=== PATIENT | male | born 1950 | race Caucasian/White ===

== ENCOUNTER 2016-10-04 10:38 | Inpatient (IN) | payer BC ==
[~2016-10-04] VITALS: Ht 177.8 cm; Wt 62.0 kg
--- NOTE | 2016-10-04 12:04 | ERA ---
ER Documentation Chief Complaint Date/Time DATE: 10/04/16 TIME: 12:04 Chief Complaint dizzy HPI The patient is a 76-year-old male, presenting to the ER because of dizziness about 10 AM while he was washing his car, complains of dry mouth. He denies similar symptoms previously, denies syncope, near syncope, vertigo, neck pain, chest pain, dyspnea, abdominal pain, vomiting, dysuria, diarrhea. He does not smoke, drink, he did take Viagra last week Past medical/surgical history: None ROS All systems reviewed and are negative except as per history of present illness. Medications Home Meds Reported Medications Sildenafil Citrate* (Viagra*) 25 Mg Tablet, 25 MG PO DAILY Y for SEXUAL ACTIVITIES, TAB 10/04/16 Allergies Allergies: Coded Allergies: No Known Allergy (Unverified , 10/04/16) Physical Exam Vitals Vital Signs Date Time Temp Pulse Resp B/P Pulse Ox O2 Delivery O2 Flow Rate FiO2 10/04/16 13:25 49 17 149/76 100 Room Air Physical Exam Const: No acute distress. Head: Atraumatic. Eyes: Normal Conjunctiva. ENT: Normal External Ears, Nose and Mouth. Neck: Full range of motion. No meningismus. Resp: Clear to auscultation bilaterally. Cardio: Regular bradycardic Abd: Soft, non distended, normal bowel sounds, non tender. Skin: No petechiae or rashes. Back: No midline or flank tenderness. Ext: No cyanosis, or edema. Neur: Awake and alert. No focal deficit Psych: Normal Mood and Affect. Result Diagram: 10/04/16 1205 10/04/16 1553 Results 24 hrs Laboratory Tests Test 10/04/16 12:05 White Blood Count 8.310^3/ul Red Blood Count 4.9810^6/ul Hemoglobin 15.4g/dl Hematocrit 45.8% Mean Corpuscular Volume 92.0fl Mean Corpuscular Hemoglobin 30.9pg Mean Corpuscular Hemoglobin Concent 33.6g/dl Red Cell Distribution Width 14.0% Platelet Count 05668^3/UL Mean Platelet Volume 9.5fl Neutrophils % 77.6% Lymphocytes % 11.7% Monocytes % 8.1% Eosinophils % 1.6% Basophils % 0.6% Nucleated Red Blood Cells % 0.0/100WBC Neutrophils # (Manual) 610^3/ul Lymphocytes # 1.010^3/ul Monocytes # 0.710^3/ul Eosinophils # 0.110^3/ul Basophils # 0.110^3/ul Nucleated Red Blood Cells # 0.010^3/ul Sodium Level 156mmol/L Potassium Level 4.5mmol/L Chloride Level 99mmol/L Carbon Dioxide Level 30mmol/L Anion Gap 32 Blood Urea Nitrogen 14mg/dl Creatinine 0.91mg/dl Glucose Level 112mg/dl Calcium Level 9.6mg/dl Troponin I < 0.012ng/ml Thyroid Stimulating Hormone (TSH) 0.814MIU/L Procedures/MDM EKG: Read by emergency physician Rate/Rhythm: Sinus bradycardia 42 beats/min QRS, ST, T-waves: No ST elevation, no T inversion, incomplete right bundle branch block Impression: Abnormal EKG [place] [address] Radiology Main Line: [phone] DIAGNOSTIC IMAGING REPORT Patient: ALYSSA DASH : 1950 Age: 66 Sex: M [id number] DOS: 10/04/16 1151 Ordering MD: CARLIN CARRASCO MD Location: E/R Room/Bed: PROCEDURE: CT Brain without contrast. CLINICAL INDICATION: Dizziness, syncope. TECHNIQUE: A CT of the brain was performed on a multidetector CT scanner utilizing axial sections from the skull base through the vertex without contrast. Images were reviewed on a high-resolution PACS workstation. Exam CTDI = 44.58 mGy and the DLP = 720.23 mGy-cm. One or the following dose reduction techniques were used: -Automated exposure control. -Adjustment of the mA and/or KV according to patient's size. -Use of iterative reconstruction technique COMPARISON: None available FINDINGS: Mild diffuse cerebral and cerebellar atrophy is present. There is proportionate dilatation of the ventricular system and sulci in a symmetric fashion. There is prominence of the extraaxial spaces secondary to atrophy. There is no evidence of intracranial hemorrhage, mass effect or midline shift. No abnormal intra-axial or extra-axial fluid collections are seen. The density of the brain is normal and the loaiza/white matter differentiation is well preserved. Mild patchy diffuse deep white matter microangiopathic ischemic change is seen. The osseous structures and visualized paranasal sinuses are unremarkable. IMPRESSION: 1. No evidence of acute intracranial pathology. 2. Age-related volume loss and small vessel ischemic changes. RPTAT: AACC Justin Sullivan Physician Date Time Electronically viewed and signed by Justin Sullivan Physician on 10/04/2016 12: 58 JH/ CC: CARLIN CARRASCO MD MEDICAL MAKING DECISION: The patient is a 76-year-old male, presenting with acute dizziness of unclear etiology, acute bradycardia, acute hypernatremia. He remained stable emergency department The differential diagnoses considered include but are not limited to central causes such as cerebellar infarct, cerebellar hemorrhage, cerebellar tumor, acoustic neuroma, peripheral causes such as benign positional vertigo, labyrinthitis, medication, Meniere's disease. Departure Diagnosis: Primary Impression: Dizziness Additional Impressions: Bradycardia Hypernatremia Condition: Stable Comments I discussed the findings with the patient. I discussed the patient with the on- call hospitalist Dr. Sheppard at 1:30 pm who was made aware of the lab, the treatment, the patient condition. The patient is admitted to telemetry The patient's blood pressure was elevated (>120/80) but appears stable without evidence of hypertension emergency or urgency. The patient was counseled about the risks of hypertension and urged to pursue outpatient monitoring and therapy within a week with their primary care physician. CARLIN CARRASCO MD Oct 04, 2016 12:02
[2016-10-04 12:37] LABS: BASOPHIL # 0.1 10^3/ul (0.0-0.1); BASOPHILS % 0.6 % (0.0-2.0); EOSINOPHILS # 0.1 10^3/ul (0.0-0.5); EOSINOPHILS % 1.6 % (0.0-7.0); HEMATOCRIT 45.8 % (42.0-52.0); HEMOGLOBIN 15.4 g/dl (14.0-18.0); LYMPHOCYTES % 11.7 % (15.0-51.0); MEAN CORPUSCULAR HEMOGLOBIN 30.9 pg (29.0-33.0); MEAN CORPUSCULAR HGB CONC 33.6 g/dl (32.0-37.0); MEAN PLATELET VOLUME 9.5 fl (7.4-10.4); MONOCYTE # 0.7 10^3/ul (0.3-0.9); MONOCYTES % 8.1 % (0.0-11.0); NEUTROPHILS % 77.6 % (39.0-77.0); PLATELET COUNT 223 10^3/UL (140-415); RED BLOOD COUNT 4.98 10^6/ul (4.70-6.10); WHITE BLOOD COUNT 8.3 10^3/ul (4.8-10.8)
[2016-10-04 12:58] LABS: ANION GAP 32 (8-16); BLOOD UREA NITROGEN 14 mg/dl (7-20); CALCIUM 9.6 mg/dl (8.4-10.2); CARBON DIOXIDE 30 mmol/L (21-31); CHLORIDE 99 mmol/L (97-110); CREATININE 0.91 mg/dl (0.61-1.24); GLUCOSE 112 mg/dl (70-220); POTASSIUM 4.5 mmol/L (3.5-5.1); SODIUM 156 mmol/L (135-144)
--- NOTE | 2016-10-04 12:59 | RADRPT ---
PROCEDURE: CT Brain without contrast. CLINICAL INDICATION: Dizziness, syncope. TECHNIQUE: A CT of the brain was performed on a multidetector CT scanner utilizing axial sections from the skull base through the vertex without contrast. Images were reviewed on a high-resolution [employer] workstation. Exam CTDI = 44.58 mGy and the DLP = 720.23 mGy-cm. One or the following dose reduction techniques were used: -Automated exposure control. -Adjustment of the mA and/or KV according to patient's size. -Use of iterative reconstruction technique COMPARISON: None available FINDINGS: Mild diffuse cerebral and cerebellar atrophy is present. There is proportionate dilatation of the v entricular system and sulci in a symmetric fashion. There is prominence of the extraaxial spaces sec ondary to atrophy. There is no evidence of intracranial hemorrhage, mass effect or midline shift. N o abnormal intra-axial or extra-axial fluid collections are seen. The density of the brain is peter l and the loaiza/white matter differentiation is well preserved. Mild patchy diffuse deep white matte r microangiopathic ischemic change is seen. The osseous structures and visualized paranasal sinuses are unremarkable. IMPRESSION: 1. No evidence of acute intracranial pathology. 2. Age-related volume loss and small vessel ischemic changes. RPTAT: AACC Physician Cyril Date Time Electronically viewed and signed by Physician Cyril on 10/04/2016 12:58 /
[2016-10-04 13:07] LABS: TROPONIN-I < 0.012 ng/ml (0.00-0.12)
[2016-10-04] MEDS ORDERED: SILD25TA5 PO (13:48)
[2016-10-04] MEDS ORDERED: DEXTROSE 5%-0.45% NACL 1,000 ML IV SCH (14:50)
[2016-10-04 14:54] VITALS: Ht 177.8 cm; Wt 62.0 kg
[2016-10-04] MEDS ORDERED: ACETAMINOPHEN 325 MG TAB PO PRN (15:00)
[2016-10-04] MEDS ORDERED: HYDROCODONE/APAP (5/325) TAB PO PRN (15:00)
[2016-10-04] MEDS ORDERED: morphine 2 MG INJ IV PRN (15:00)
[2016-10-04] MEDS ORDERED: NITROGLYCERIN (SL) 0.4 MG TAB SL PRN (15:00)
[2016-10-04] MEDS ORDERED: DEXTROSE 5% 1,000 ML IV SCH (15:00)
[2016-10-04] MEDS ORDERED: DOCUSATE SODIUM 100 MG CAP PO PRN (15:00)
[2016-10-04] MEDS ORDERED: ACETAMINOPHEN 650 MG SUPP PR PRN (15:00)
[2016-10-04] MEDS ORDERED: NACL 0.9% 3 ML SYG IV SCH (15:00)
[2016-10-04] MEDS ORDERED: ONDANSETRON 4 MG INJ IV PRN (15:00)
[2016-10-04 15:10] VITALS: BP 177/84; PULSE 43; RESP 18
--- NOTE | 2016-10-04 15:16 | HP ---
Date/Time of Note Date/Time of Note DATE: 10/04/16 TIME: 15:10 Assessment/Plan VTE Prophylaxis VTE Prophylaxis Intervention: SCD's Assessment/Plan Assessment/Plan This is a 66-year-old male who came to the emergency room for evaluation of sudden new onset of dizziness and lightheadedness. 1. Dizziness/lightheadedness-most likely dehydration with electrolyte imbalances versus vasovagal versus orthostatic hypotension versus others. CT negative for any acute ischemic process. -Admit to telemetry. Rule out ACS with serial troponin, serial EKG and 2D echocardiogram and possible cardiology consult. -Patient will be started on aspirin. -Obtain orthostatic vital signs. 2. Severe Hypernatremia with Free water deficit approximately 3 L -We will repeat sodium level to confirm accuracy. Obtain osmolality studies. Consider nephrology evaluation. -Start patient on D5 water. 3. Sinus bradycardia -Consider cardiology evaluation as patient presented with #1. -Refrain from any beta blockers or AV dony blocking agents. Plan: Patient will be admitted to telemetry. He will be started on a diet. Will monitor serial troponins and serial EKGs. Will continue to monitor electrolyte level closely. Patient will have nephrology evaluation. Will also obtain fasting lipid panel, A1c and TSH level. Rest of the management depend on clinical course, further studies and input from consultants. Approximately 60 minutes was spent on this history and physical. Case discussed with Dr. Sheppard. HPI/ROBERTA Admit Date/Time Admit Date/Time Oct 04, 2016 at 14:39 Hx of Present Illness This is a 66-year-old male with no significant past medical history, who presented to the emergency room with complaints of new onset of dizziness and lightheadedness which started this morning while he was washing his car. Patient also complained of feeling thirsty with dry mouth and diaphoresis. He denied any polyuria. Patient denied any loss of consciousness, numbness, tingling, difficulty breathing, nausea, chest pain, palpitation, vomiting, abdominal pain or any bowel or bladder irregularities. He also takes Viagra at home. Initial workup showed elevated sodium 156. 12 EKG sinus bradycardia at 42 bpm. Chest x-ray negative for any acute brain CT negative for acute ischemic events. Initial troponin negative. Patient was admitted for further evaluation. ROS A 12 point review system was assessed and is negative other than what is mentioned in the HPI. PMH/Family/Social Past Medical History See HPI Past Surgical History See HPI Social History No history of alcohol, smoking or illicit drug use. Smoking Status: Never smoker Exam/Review of Systems Vital Signs Vitals Vital Signs Date Time Temp Pulse Resp B/P Pulse Ox O2 Delivery O2 Flow Rate FiO2 10/04/16 13:25 49 17 149/76 100 Room Air Exam Exam General: Well developed,adequately built, not in any acute distress . HEENT: Normocephalic, Atraumatic, No laceration or hematoma; Eyes: PEERL, Conjunctiva clear, Anicteric sclera Neck: Supple without any lymphadenopathy, nontender, no JVD, no carotid bruits, trachea midline, no thyromegaly Cardiac: S1, S2 auscultated, regular rhythm and rate, no mumurs or gallop Pulmonary: Normal respiratory effort. Chest clear to auscultation bilaterally, no adventitious breath sounds GI: Abdomen normal to inspection. Soft, non tender, non- distended, no masses, no rebound tenderness or guarding. Bowel sounds active on all four quadrants Genitourinary: Deferred Extremities: No cyanosis, clubbing, or edema. Pulses [2+] bilaterally. Full ROM on all four extremities. No focal weakness appreciated. Neurologic: Alert to person, place, time, and situation. Affect appropriate, intact sensation. Skin: Clean,dry, and intact. No ecchymosis, no rashes, or lesions Labs Result Diagram: 10/04/16 1205 10/04/16 1205 Medications Medications Current Medications Ondansetron HCl (Zofran Inj) 4 mg Q6H PRN IV NAUSEA AND/OR VOMITING; Start at 15:00 Acetaminophen (Tylenol Tab) 650 mg Q6H PRN PO PAIN LEVEL 1-3 OR FEVER; Start at 15:00 Acetaminophen (Tylenol Supp) 650 mg Q6H PRN [place] PAIN LEVEL 1-3 OR FEVER; Start 10/04/16 at 15:00 Acetaminophen/ Hydrocodone Bitart ([place] (5/325)) 1 tab Q6H PRN PO MODERATE PAIN LEVEL 4-6; Start 10/04/16 at 15:00 Morphine Sulfate (morphine) 2 mg Q4H PRN IV SEVERE PAIN LEVEL 7-10; Start 10/04 at 15:00 Docusate Sodium (Colace) 100 mg Q12H PRN PO CONSTIPATION; Start 10/04/16 at 15: 00 Aspirin (Aspirin) 81 mg DAILY PO ; Start 10/05/16 at 09:00 Nitroglycerin 1 tab 1 tab Q5M PRN SL ANGINA; Start 10/04/16 at 15:00 Dextrose (D5W) 1,000 ml @ 100 mls/hr Q10H IV ; Start 10/04/16 at 15:00 MADELINE CHUA NP Oct 04, 2016 15:16
[2016-10-04 16:00] VITALS: PULSE 45
[2016-10-04 17:24] LABS: CREATINE KINASE 129 IU/L (23-200)
[2016-10-04 17:47] LABS: CK-MB 2.57 ng/ml (0.0-2.4); TROPONIN-I < 0.012 ng/ml (0.00-0.12)
--- NOTE | 2016-10-04 18:55 | QN ---
Documentation Comment pt seen and examined, h/p dictated LETICIA RUVALCABA DO Oct 04, 2016 18:55
[2016-10-04 19:50] VITALS: BP 150/84; PULSE 56; RESP 18
[2016-10-04 22:10] VITALS: BP_SYST 136; BP_SYST 139; BP_SYST 141; BP_DIAS 73; BP_DIAS 75; BP_DIAS 79; PULSE 47; RESP 20
[2016-10-04 22:16] VITALS: PULSE 55
[2016-10-04 22:39] LABS: CREATINE KINASE 122 IU/L (23-200)
[2016-10-04 22:53] LABS: CK-MB 1.95 ng/ml (0.0-2.4); TROPONIN-I < 0.012 ng/ml (0.00-0.12)
[2016-10-04 23:41] VITALS: BP 130/77; RESP 17
[2016-10-05] VITALS (7 sets, daily range): BP systolic 130–139; BP diastolic 76–84; PULSE 51–81; RESP 17–18
[2016-10-05 07:42] LABS: BASOPHIL # 0.1 10^3/ul (0.0-0.1); BASOPHILS % 0.9 % (0.0-2.0); EOSINOPHILS # 0.2 10^3/ul (0.0-0.5); EOSINOPHILS % 3.3 % (0.0-7.0); HEMATOCRIT 44.2 % (42.0-52.0); HEMOGLOBIN 14.6 g/dl (14.0-18.0); LYMPHOCYTES # 1.4 10^3/ul (0.8-2.9); LYMPHOCYTES % 19.1 % (15.0-51.0); MEAN CORPUSCULAR HEMOGLOBIN 30.7 pg (29.0-33.0); MEAN CORPUSCULAR VOLUME 92.9 fl (82.0-101.0); MEAN PLATELET VOLUME 8.9 fl (7.4-10.4); MONOCYTE # 0.7 10^3/ul (0.3-0.9); MONOCYTES % 9.3 % (0.0-11.0); NEUTROPHILS % 67.1 % (39.0-77.0); PLATELET COUNT 208 10^3/UL (140-415); RED BLOOD COUNT 4.76 10^6/ul (4.70-6.10); RED CELL DISTRIBUTION WIDTH 14.2 % (11.5-14.5); WHITE BLOOD COUNT 7.4 10^3/ul (4.8-10.8)
[2016-10-05 08:07] LABS: ADD UMIC NO; UR ASCORBIC ACID NEGATIVE (NEGATIVE); UR BILIRUBIN (Dip) NEGATIVE (NEGATIVE); UR BLOOD (Dip) NEGATIVE (NEGATIVE); UR CLARITY CLEAR (CLEAR); UR COLOR YELLOW (YELLOW); UR GLUCOSE (Dip) NEGATIVE (NEGATIVE); UR KETONES (Dip) NEGATIVE (NEGATIVE); UR LEUKOCYTE ESTERASE (Dip) NEGATIVE Leu/ul (NEGATIVE); UR NITRITE (Dip) NEGATIVE (NEGATIVE); UR SPECIFIC GRAVITY (Dip) 1.011 (1.003-1.030); UR TOTAL PROTEIN (Dip) NEGATIVE (NEGATIVE); UR UROBILINOGEN (Dip) NEGATIVE (NEGATIVE)
[2016-10-05 08:48] LABS: ALBUMIN 3.6 g/dl (3.3-4.9); ALBUMIN/GLOBULIN RATIO 1.33; BILIRUBIN,INDIRECT 0.7 mg/dl (0-1.1); BILIRUBIN,TOTAL 0.7 mg/dl (0.2-1.3); CALCIUM 8.7 mg/dl (8.4-10.2); CHOL/HDL RATIO 2.5 RATIO; CREATININE 0.97 mg/dl (0.61-1.24); MAGNESIUM 2.1 mg/dl (1.7-2.5); PHOSPHORUS 3.4 mg/dl (2.5-4.9); POTASSIUM 4.3 mmol/L (3.5-5.1); TOTAL PROTEIN 6.3 g/dl (6.1-8.1)
[2016-10-05] MEDS ORDERED: ASPIRIN 81 MG TAB PO SCH (09:00)
--- NOTE | 2016-10-05 11:19 | PDOCDIS ---
Discharge Instructions CONDITION Patient Condition: Stable HOME CARE INSTRUCTIONS: Diet Instructions: Regular FOLLOW UP/APPOINTMENTS Follow-up Plan 1.Follow up with primary care physician in 1 week If you don't have one please let someone know, we can give you resources that may help you pick one. You may also call your insurance company to assign one to you. Review your medication list with your nurse before leaving and if you need new prescriptions please let your nurse know. I may have made changes to your home medications or given you new prescriptions, please let your primary doctor know as well. Stay compliant with your medications and report any side effects to your PCP or pharmacist. Return to the ER if you have any concerns and cannot reach your doctors or call your insurance company, they usually have a nurse that can help you. 2. Call 911 or go to the nearest emergency room if experiencing loss of consciousness, dizziness, chest pain, shortness of breath, vomiting/abdominal pain, speech difficulties, motor weakness or any unusual symptoms. MADELINE CHUA NP Oct 05, 2016 11:18
--- NOTE | 2016-10-05 11:21 | CONS ---
Date/Time of Note Date/Time of Note DATE: 10/05/16 TIME: 11:16 Assessment/Plan Assessment/Plan Chief Complaint/Hosp Course Dizziness: Likely dehydration in setting of severe hypernatremia. Now resolved. Unrelated to sinus bradycardia Hypernatremia: due to above Sinus bradycardia: no conduction disease. Secondary to active lifestyle. -ok for d/c -no further workup indicated Problems: Consultation Date/Type/Reason Admit Date/Time Oct 04, 2016 at 14:39 Date of Consultation: Oct 05, 2016 Type of Consultation: Cardiology Reason for Consultation bradycardia, dizziness Referring Provider: MADELINE CHUA NP Hx of Present Illness 66 yo M with no past medical history who presented with dizziness. He was found to have sinus bradycardia in the 40s as well as hypernatremia with Na 156. He notes that he goes to the gym 5 times per week. No dizziness or any symptoms associated with exercise. No prior syncope. He was feeling dizzy all day so he decided to come in for evaluation. He admits to not drinking much water in genera.. He feels back to his baseline. No SOB, orthopnea, PND, edema, chest pain. per HPI, otherwise negative Past Medical History none Social History Smoking Status: Never smoker Exam/Review of Systems Vital Signs Vitals Vital Signs Date Time Temp Pulse Resp B/P Pulse Ox O2 Delivery O2 Flow Rate FiO2 10/05/16 08:46 59 10/05/16 07:47 97.8 18 130/84 96 10/04/16 19:50 Room Air Intake and Output 10/04/16 10/04/16 10/05/16 15:00 23:00 07:00 Intake Total 300 ml Balance 300 ml Exam Constitutional: alert, oriented Psych: nl mood/affect, no complaints Head: atraumatic, normocephalic Eyes: nl conjunctiva ENMT: nl external ears & nose Neck: non-tender, supple, No jvd Respiratory: clear to auscultation, No crackles/rales, No wheezing Cardiovascular: regular rate and rhythm, No edema, No systolic murmur Gastrointestinal: non-tender, soft Musculoskeletal: nl extremities to inspection Neurological: nl mental status, nl speech Skin: No rash or lesions Results EKG: sinus bradycardia, no ST changes Tele no pauses Result Diagram: 10/05/16 0710 10/05/16 0710 Results 24 hrs Laboratory Tests Test 10/04/16 12:05 10/04/16 15:53 10/04/16 22:01 10/05/16 06:00 White Blood Count 8.3 Red Blood Count 4.98 Hemoglobin 15.4 Hematocrit 45.8 Mean Corpuscular Volume 92.0 Mean Corpuscular Hemoglobin 30.9 Mean Corpuscular Hemoglobin Concent 33.6 Red Cell Distribution Width 14.0 Platelet Count 223 Mean Platelet Volume 9.5 Neutrophils % 77.6 H Lymphocytes % 11.7 L Monocytes % 8.1 Eosinophils % 1.6 Basophils % 0.6 Nucleated Red Blood Cells % 0.0 Neutrophils # (Manual) 6 Lymphocytes # 1.0 Monocytes # 0.7 Eosinophils # 0.1 Basophils # 0.1 Nucleated Red Blood Cells # 0.0 Sodium Level 156 H 139 # Potassium Level 4.5 Chloride Level 99 Carbon Dioxide Level 30 Anion Gap 32 H Blood Urea Nitrogen 14 Creatinine 0.91 Glucose Level 112 Calcium Level 9.6 Troponin I < 0.012 < 0.012 < 0.012 Thyroid Stimulating Hormone (TSH) 0.814 Osmolality 290 Creatine Kinase 129 122 Creatine Kinase Index 2.0 1.6 Creatinine Kinase MB (Mass) 2.57 H 1.95 Urine Random Creatinine 79.56 Urine Random Sodium 72 Urine Total Protein 11.0 Test 10/05/16 07:10 White Blood Count 7.4 Red Blood Count 4.76 Hemoglobin 14.6 Hematocrit 44.2 Mean Corpuscular Volume 92.9 Mean Corpuscular Hemoglobin 30.7 Mean Corpuscular Hemoglobin Concent 33.0 Red Cell Distribution Width 14.2 Platelet Count 208 Mean Platelet Volume 8.9 Neutrophils % 67.1 Lymphocytes % 19.1 Monocytes % 9.3 Eosinophils % 3.3 Basophils % 0.9 Nucleated Red Blood Cells % 0.0 Neutrophils # (Manual) 5 Lymphocytes # 1.4 Monocytes # 0.7 Eosinophils # 0.2 Basophils # 0.1 Nucleated Red Blood Cells # 0.0 Sodium Level 137 Potassium Level 4.3 Chloride Level 101 Carbon Dioxide Level 29 Anion Gap 11 # Blood Urea Nitrogen 16 Creatinine 0.97 Glucose Level 93 Hemoglobin A1c 5.6 Calcium Level 8.7 Phosphorus Level 3.4 Magnesium Level 2.1 Total Bilirubin 0.7 Direct Bilirubin 0.00 Indirect Bilirubin 0.7 Aspartate Amino Transf (AST/SGOT) 27 Alanine Aminotransferase (ALT/SGPT) 37 Alkaline Phosphatase 63 Total Protein 6.3 Albumin 3.6 Globulin 2.70 Albumin/Globulin Ratio 1.33 Triglycerides Level 53 Cholesterol Level 118 LDL Cholesterol, Calculated 61 HDL Cholesterol 46 Cholesterol/HDL Ratio 2.5 Thyroid Stimulating Hormone (TSH) Pending Medications Medications Current Medications Ondansetron HCl (Zofran Inj) 4 mg Q6H PRN IV NAUSEA AND/OR VOMITING; Start at 15:00 Acetaminophen (Tylenol Tab) 650 mg Q6H PRN PO PAIN LEVEL 1-3 OR FEVER; Start at 15:00 Acetaminophen (Tylenol Supp) 650 mg Q6H PRN [place] PAIN LEVEL 1-3 OR FEVER; Start 10/04/16 at 15:00 Acetaminophen/ Hydrocodone Bitart ([place] (5/325)) 1 tab Q6H PRN PO MODERATE PAIN LEVEL 4-6; Start 10/04/16 at 15:00 Morphine Sulfate (morphine) 2 mg Q4H PRN IV SEVERE PAIN LEVEL 7-10; Start 10/04 at 15:00 Docusate Sodium (Colace) 100 mg Q12H PRN PO CONSTIPATION; Start 10/04/16 at 15: 00 Aspirin (Aspirin) 81 mg DAILY PO Last administered on 10/05/16t 09:31; Admin Dose 81 MG; Start 10/05/16 at 09:00 Nitroglycerin (Nitroglycerin (Sl Tab) 0.4 Mg) 1 tab Q5M PRN SL ANGINA; Start at 15:00 OSMAR MORA Oct 05, 2016 11:21
--- NOTE | 2016-10-05 12:15 | RADRPT ---
Echocardiogram Report Patient Name: ALYSSA DASH Gender: Male Date: 1950 Study Date: 04-Oct-2016 Contact Representative: JOLENE MATSON Location: [id number] Ref. Physician: MADELINE CHUA Quality: Good Procedures: Transthoracic echocardiogram with complete 2D, M-Mode, and doppler examination. Indications: Bradycardia. Dizziness. 2D/M Mode Doppler Measurement Value Normal Ranges Measurement Value Normal Ranges LVIDd 2D 3.8 3.5 - 5.6 cm AV Peak Russ 1.4 m/sec LVIDs 2D 1.7 2.1 - 4.1 cm AV Peak PG 8.2 mmHg LVPWd 2D 1.5 0.6 - 1.1 cm LVOT Peak Russ 1.1 m/sec IVSd 2D 1.5 0.6 - 1.1 cm LVOT Peak PG 5.0 mmHg AoR Diam 2D 3.6 2.0 - 3.7 cm MV E Peak Russ 0.7 m/sec EDV 2D 60.4 cm3 MV A Peak Russ 0.6 m/sec ESV 2D 4.8 cm3 MV E/A 1.1 LA Dimen 2D 3.4 2.3 - 4.0 cm MV Decel Time 219 msec MV Decel [place] 3 MV E/A 1.1 TR Peak Russ 2.5 m/sec TR Peak PG 29.0 mmHg Findings Left Ventricle: Normal left ventricular systolic function. Normal left ventricular cavity size. Mild concentric left ventricular hypertrophy. Ejection fraction is visually estimated at 60 %. Tissue Doppler/Mitral Doppler indices are within normal limits. Right Ventricle: Normal right ventricular size. Normal right ventricular systolic function. Left Atrium: Upper limit of normal left atrial size. Right Atrium: The right atrium is normal in size. Mitral Valve: Normal appearance of the mitral valve. Normal appearance and function of the mitral valve with trace physiologic regurgitation. Mild mitral valve regurgitation. Aortic Valve: Normal appearance of the aortic valve. No significant aortic stenosis or insufficiency. Tricuspid Valve: Unable to obtain RVSP due to minimal presence of tricuspid regurgitation. There is trace tricuspid regurgitation. Pulmonic Valve: Normal pulmonic valve appearance. Pericardium: Normal pericardium with no significant pericardial effusion. Aorta: Normal aortic root. IVC: Normal size and normal respiratory collapse consistent with normal right atrial pressure. Pulmonary Artery: Not well visualized. Conclusions Normal left ventricular systolic function. Normal left ventricular cavity size. Mild concentric left ventricular hypertrophy. Ejection fraction is visually estimated at 60 %. Tissue Doppler/Mitral Doppler indices are within normal limits. Mild mitral valve regurgitation. Unable to obtain RVSP due to minimal presence of tricuspid regurgitation. RA pressure is estimated to be 3 mmHg. Electronically Signed By: Bandar Arthur 05-Oct-2016 12:14:43 -0700 Patient Name: ALYSSA DASH Study Date: 04-Oct-2016 [id number]
[2016-10-05 14:16] LABS: THYROID STIMULATING HORMONE 1.1 MIU/L (0.465-4.680)
--- NOTE | 2016-10-05 15:30 | DS ---
Date/Time of Note Date/Time of Note DATE: 10/05/16 TIME: 15:27 Discharge Summary Admission/Discharge Info Admit Date/Time Oct 04, 2016 at 14:39 Discharge Date/Time Oct 05, 2016 at 13:30 Discharge Diagnosis Dizziness likely secondary to dehydration in setting of severe hypernatremia. Resolved Hypernatremia. Resolved Sinus bradycardia Secondary to active lifestyle. No conduction abnormalities. Patient Condition: Stable Consults ,nephrology ,cardiology Procedures 10/04/2016. 2D echocardiogram Conclusions Normal left ventricular systolic function. Normal left ventricular cavity size. Mild concentric left ventricular hypertrophy. Ejection fraction is visually estimated at 60 %. Tissue Doppler/Mitral Doppler indices are within normal limits. Mild mitral valve regurgitation. Unable to obtain RVSP due to minimal presence of tricuspid regurgitation. RA pressure is estimated to be 3 mmHg. Hospital Course This is a 66-year-old male with no significant past medical history, who presented to the emergency room for sudden onset of dizziness and lightheadedness that started in the morning while he was washing his car. In the emergency room, patient was found to have sinus bradycardia in the 40s with a sodium of 156. Patient also go to gym around 5 times in a week. Patient did not have any chest pain, palpitation, shortness of breath or other constitutional symptoms. His dizziness was not associated with any activities. Patient was also feeling thirsty in the emergency room. Patient was admitted for further evaluation. A cardiology and nephrology consultation was called. Patient was treated with D5 water. Serial troponin and EKG was negative for any acute ischemia. Patient repeat sodium was normal. There was no he did not have any further dizziness or lightheadedness. Patient is able to tolerate diet and activities well. His labs and vital signs remained stable. According to cardiology, sinus bradycardia is not likely the cause of patient's symptoms. His bradycardia is most likely secondary to active lifestyle and is not related to any conduction abnormalities. At this time, there is no further inpatient cardiac workup indicated by cardiology. She did not have any EKG changes. Echo with preserved EF. Likely cause of his symptoms secondary to dehydration with possible electrolyte imbalances which was resolved. Patient is medically stable for discharge. Disposition: Patient will be discharged home today. He was instructed to follow -up with his primary care physician in 1 week. Patient verbalized discharge instructions. Approximately 60 minutes was spent in coordinating the discharge on this patient. Case discussed with Dr. Sheppard. Home Meds Reported Medications Sildenafil Citrate* (Viagra*) 25 Mg Tablet, 25 MG PO DAILY Y for SEXUAL ACTIVITIES, TAB 10/04/16 Follow-up Plan HOME CARE INSTRUCTIONS: Diet Instructions: Regular FOLLOW UP/APPOINTMENTS Follow-up Plan 1.Follow up with primary care physician in 1 week If you don't have one please let someone know, we can give you resources that may help you pick one. You may also call your insurance company to assign one to you. Review your medication list with your nurse before leaving and if you need new prescriptions please let your nurse know. I may have made changes to your home medications or given you new prescriptions, please let your primary doctor know as well. Stay compliant with your medications and report any side effects to your PCP or pharmacist. Return to the ER if you have any concerns and cannot reach your doctors or call your insurance company, they usually have a nurse that can help you. 2. Call 911 or go to the nearest emergency room if experiencing loss of consciousness, dizziness, chest pain, shortness of breath, vomiting/abdominal pain, speech difficulties, motor weakness or any unusual symptoms. Primary Care Provider Lee Burgos MD Pending Labs Laboratory Tests Test 10/04/16 15:53 10/04/16 22:01 10/05/16 06:00 10/05/16 07:10 Sodium Level 139mmol/L (135-144) 137mmol/L (135-144) Osmolality 290mOsm/kg (280-295) Creatine Kinase 129IU/L (23-200) 122IU/L (23-200) Creatine Kinase Index 2.0 1.6 Creatinine Kinase MB (Mass) 2.57ng/ml (0.0-2.4) 1.95ng/ml (0.0-2.4) Troponin I < 0.012ng/ml (0.00-0.12) < 0.012ng/ml (0.00-0.12) Urine Osmolality 410mOsm/kg (250-1200) Urine Random Creatinine 79.56mg/dl (20-370) Urine Random Sodium 72mmol/L (30-90) Urine Total Protein 11.0mg/dl (0.0-11.9) White Blood Count 7.410^3/ul (4.8-10.8) Red Blood Count 4.7610^6/ul (4.70-6.10) Hemoglobin 14.6g/dl (14.0-18.0) Hematocrit 44.2% (42.0-52.0) Mean Corpuscular Volume 92.9fl (82.0-101.0) Mean Corpuscular Hemoglobin 30.7pg (29.0-33.0) Mean Corpuscular Hemoglobin Concent 33.0g/dl (32.0-37.0) Red Cell Distribution Width 14.2% (11.5-14.5) Platelet Count 73325^3/UL (140-415) Mean Platelet Volume 8.9fl (7.4-10.4) Neutrophils % 67.1% (39.0-77.0) Lymphocytes % 19.1% (15.0-51.0) Monocytes % 9.3% (0.0-11.0) Eosinophils % 3.3% (0.0-7.0) Basophils % 0.9% (0.0-2.0) Nucleated Red Blood Cells % 0.0/100WBC (0.0-0.0) Neutrophils # (Manual) 510^3/ul (1.7-7.5) Lymphocytes # 1.410^3/ul (0.8-2.9) Monocytes # 0.710^3/ul (0.3-0.9) Eosinophils # 0.210^3/ul (0.0-0.5) Basophils # 0.110^3/ul (0.0-0.1) Nucleated Red Blood Cells # 0.010^3/ul (0.0-0.0) Potassium Level 4.3mmol/L (3.5-5.1) Chloride Level 101mmol/L (97-110) Carbon Dioxide Level 29mmol/L (21-31) Anion Gap 11 (8-16) Blood Urea Nitrogen 16mg/dl (7-20) Creatinine 0.97mg/dl (0.61-1.24) Glucose Level 93mg/dl (70-220) Hemoglobin A1c 5.6% (0-5.9) Calcium Level 8.7mg/dl (8.4-10.2) Phosphorus Level 3.4mg/dl (2.5-4.9) Magnesium Level 2.1mg/dl (1.7-2.5) Total Bilirubin 0.7mg/dl (0.2-1.3) Direct Bilirubin 0.00mg/dl (0.00-0.20) Indirect Bilirubin 0.7mg/dl (0-1.1) Aspartate Amino Transf (AST/SGOT) 27IU/L (15-46) Alanine Aminotransferase (ALT/SGPT) 37IU/L (13-69) Alkaline Phosphatase 63IU/L (42-121) Total Protein 6.3g/dl (6.1-8.1) Albumin 3.6g/dl (3.3-4.9) Globulin 2.70g/dl (1.3-3.2) Albumin/Globulin Ratio 1.33 Triglycerides Level 53mg/dl (0-149) Cholesterol Level 118mg/dl (100-200) LDL Cholesterol, Calculated 61mg/dl HDL Cholesterol 46mg/dl (30-78) Cholesterol/HDL Ratio 2.5RATIO Thyroid Stimulating Hormone (TSH) 1.100MIU/L (0.465-4.680) MADELINE CHUA NP Oct 05, 2016 15:30
--- NOTE | 2016-10-06 05:12 | CONS ---
DATE OF ADMISSION: 10/04/2016 DATE OF CONSULTATION: 10/04/2016 REASON FOR CONSULTATION: Hyponatremia. REQUESTING PHYSICIAN: Dr. Aquino HISTORY OF PRESENT ILLNESS: This is a 66-year-old male with no past medical history who presented to emergency room complaining of dizziness, lightheadedness while he was washing his car. The patient was also complaining of feeling thirsty. He denied any polyuria. Upon arrival to the emergency room, the patient was noted to be hyponatremic with sodium 156. He had a CT scan of the brain, which was negative for any acute findings. He was subsequently admitted for evaluation. In terms of the patient's renal history, the patient has no prior history of diabetes insipidus. Denies any previous history of renal failure. Denies taking any recent diuretic therapy. PAST MEDICAL HISTORY: None. PAST SURGICAL HISTORY: None. ALLERGIES: NO KNOWN DRUG ALLERGIES. FAMILY HISTORY: Noncontributory. SOCIAL HISTORY: Does not drink, smoke, or do drugs. MEDICATION: Reviewed. REVIEW OF SYSTEMS: A 14-point review of systems was conducted. Pertinent positives stated in HPI, otherwise negative. PHYSICAL EXAMINATION: VITAL SIGNS: Blood pressure 130/77, respirations 19, pulse 63, temperature 98.0 HEENT: Head is normocephalic. NECK: Supple. HEART: Regular rate. LUNGS: Diminished breath sounds at the bases, otherwise clear. ABDOMEN: Soft, nontender to palpation. No rebound or guarding. EXTREMITIES: Negative for clubbing, cyanosis. No edema. DERMATOLOGIC: No rashes. MUSCULOSKELETAL: No joint effusion. NEUROLOGIC: No focal deficits. LABORATORY: Sodium 146, potassium 4.5, BUN 14, creatinine 0.91. CBC within normal limits. ASSESSMENT AND PLAN: This is a 66-year-old male who presents with: 1. Hyponatremia. Etiology may be secondary to insensible loss. The patient's sodium levels have appropriately improved after receiving IV fluids. At this point, continue to monitor closely. Will check a urine osmolarity. Check serum osmolality. Check serial sodium level. 2. Sinus bradycardia. Continue to monitor. 3. Dizziness, lightheadedness. Etiology may be secondary to , electrolyte abnormalities. Will continue to observe. The patient has received IV fluids. 4. Thank you, , for this interesting consult. It will be a pleasure to follow the patient with you throughout the hospital course. Dictated By: Miky Williamson DO /eddie/alma /Document#: [id number]
[2016-10-06 14:47] LABS: MICROALBUMIN 0.5 mg/dL
--- NOTE | 2016-10-06 17:11 | RADRPT ---
Vent Rate: 46 bpm RR Interval: 0 msec DC Interval: 124 msec QRS Duration: 108 msec QT Interval: 468 msec QTC Interval: 409 msec P-R-T [place]: 74 - 72 - 72 degrees Marked sinus bradycardia Abnormal ECG Electronically Signed By: Jewel So [id number]
== END 2016-10-05 13:30 | disposition home or self-care (01) | DRG 309 ==
LOC: E/R 10:38 → MS3 14:39 → MS4 22:14
PROVIDERS: ADMIT Internal Medicine; ATTEND Internal Medicine
DX: R00.1 Bradycardia, unspecified (principal); E87.0 Hyperosmolality and hypernatremia; R42 Dizziness and giddiness
CPT/HCPCS: 36415; 70450; 80048; 80053; 80061; 81003; 82043; 82550; 82553; 83036; 83735; 83930; 83935; 84100; 84155; 84295; 84300; 84443; 84484; 85025; 93005; 93306; J7042; J7070